=== PATIENT | male | born 1995 | race Caucasian/White ===

== ENCOUNTER 2017-05-22 20:35 | Emergency (ER) | payer OTHER ==
[~2017-05-22] VITALS: Ht 185.4 cm; Wt 92.0 kg
[2017-05-22 20:36] VITALS: BP 163/72; PULSE 64; RESP 16; TEMP 98.6; O2SAT 97
--- NOTE | 2017-05-22 21:43 | PD ---
HPI Chief Complaint: Cold / Flu Symptoms Time Seen by Provider: 21:35 Travel History International Travel<30 days: No Contact w/Intl Traveler<30days: No Traveled to known affect area: No History of Present Illness HPI 21-year-old male here for evaluation of flulike symptoms for the last week. The patient has had fever, nasal congestion, upper respiratory symptoms, cough productive of greenish sputum. He reports that today he had a temp of 102F at around 7:30 PM and he took a dose of ibuprofen. He is afebrile here in the emergency department. He denies vomiting or diarrhea. No abdominal pain. [facility] Past Medical History Medical History: Denies Significant Hx Diminished Hearing: No Immunizations Current: Yes Past Surgical History Oral Surgery: Yes (WISDOM TEETH) Social History Alcohol Use: No Tobacco Use: No Substance Use: No Allergies-Medications (Allergen,Severity, Reaction): Coded Allergies: No Known Allergies (Unverified , 05/22/17) Reported Meds & Prescriptions Reported Meds & Active Scripts Active No Active Prescriptions or Reported Medications Review of Systems Except as stated in HPI: all other systems reviewed are Neg Physical Exam Narrative GENERAL: Well-developed, well-nourished, comfortable, no apparent distress. SKIN: Focused skin assessment warm/dry. No rash. HEAD: Atraumatic. Normocephalic. EYES: Pupils equal and round. No scleral icterus. No injection or drainage. ENT: No nasal bleeding or discharge. Mucous membranes pink and moist. Pharyngeal erythema without exudates. Uvula is midline. Normal phonation. No drooling or stridor. NECK: Trachea midline. No JVD. No nuchal rigidity. CARDIOVASCULAR: Regular rate and rhythm. RESPIRATORY: No accessory muscle use. Clear to auscultation. Breath sounds equal bilaterally. GASTROINTESTINAL: Abdomen soft, non-tender, nondistended. MUSCULOSKELETAL: No obvious deformities. No clubbing. No cyanosis. No edema. NEUROLOGICAL: Awake and alert. No obvious cranial nerve deficits. Motor grossly within normal limits. Normal speech. PSYCHIATRIC: Appropriate mood and affect; insight and judgment normal. Data Data Last Documented VS Vital Signs Date Time Temp Pulse Resp B/P (MAP) Pulse Ox O2 Delivery O2 Flow Rate FiO2 05/22/17 20:36 98.6 64 16 163/72 (102) 97 Room Air Orders Orders Influenzae A/B Antigen (05/22/17 21:40) Group A Rapid Strep Screen (05/22/17 21:40) Chest, Single Ap (05/22/17 ) Strep Culture (Group A) (05/22/17 21:40) Oseltamivir (Tamiflu) (05/22/17 22:45) MDM Medical Decision Making Medical Screen Exam Complete: Yes Emergency Medical Condition: Yes Differential Diagnosis Influenza, viral illness, URI, pharyngitis, pneumonia, bronchitis Narrative Course Initial vital signs show heart rate 64, blood pressure 163/72, pulse ox 97% on room air, oral temp of 98.6F. Influenza A+. Group A strep negative. Chest x-ray shows no acute cardio pulmonary disease. Patient was made aware of all findings. He is resting comfortably. He is overall well-appearing. There is no nuchal rigidity on exam. He will be started on Tamiflu and advised to keep fever control by alternating between Tylenol and ibuprofen every 3-4 hours and to stay hydrated with plenty of fluids. PMD follow-up this week. He was informed on when to return to the emergency department. He verbalizes understanding and agreement with plan. Diagnosis Primary Impression: Influenza A Referrals: Primary Care Physician 3 days Additional Instructions: Follow-up with a primary care physician this week. Keep fever under control by alternating between Tylenol and ibuprofen every 3-4 hours. Stay hydrated with plenty of fluids. Return to the emergency department for worsening symptoms or any other concerns. Scripts Oseltamivir (Tamiflu) 75 Mg Cap 75 MG PO BID for Mgmt Viral Infection for 5 Days, #10 CAP 0 Refills Prov: Yosvany Bazzi MD 05/22/17 Disposition: 01 DISCHARGE HOME Condition: Stable Yosvany Bazzi MD May 22, 2017 21:43
--- NOTE | 2017-05-22 22:13 | RADRPT ---
EXAM DATE/TIME: 05/22/2017 21:46 [place] COMPARISON: No previous studies available for comparison. INDICATIONS : Cough MEDICAL HISTORY : None. SURGICAL HISTORY : None. ENCOUNTER: Initial ACUITY: 1 week PAIN SCORE: 0/10 LOCATION: Bilateral chest FINDINGS: A single view of the chest demonstrates the lungs to be symmetrically aerated without evidence of mas s, infiltrate or effusion. The cardiomediastinal contours are unremarkable. Osseous structures are intact. CONCLUSION: No evidence of acute cardiopulmonary disease. Ahmet Fontenot MD on May 22, 2017 at 22:10 Board Certified Radiologist. This report was verified electronically.
[2017-05-22] MEDS ORDERED: OSEL75 PO (22:43)
[2017-05-22] MEDS ORDERED: OSELTAMIVIR PHOSPHATE 75 MG CAP PO ONE (22:45)
== END 2017-05-22 22:56 | disposition home or self-care (01) ==
LOC: NEPD 20:35
DX: J09.X2 Influenza due to identified novel influenza A virus with other respiratory manifestations (principal)
CPT/HCPCS: 71045; 87081; 87804; 87880; 99284